=== PATIENT | male | born 1995 | race Caucasian/White ===

== ENCOUNTER 2016-05-04 20:45 | Emergency (ER) | payer OTHER ==
[~2016-05-04] VITALS: Ht 165.1 cm; Wt 49.0 kg
[~2016-05-04 20:45] MED LIST: PROZ40CA PO
[2016-05-04 20:49] VITALS: BP 135/88; PULSE 97; RESP 24; TEMP 98; O2SAT 100
[2016-05-04] MEDS ORDERED: SODIUM CHLOR 0.9% 1000 ML INJ 1,000 ML IV SCH (21:13)
[2016-05-04 21:15] LABS: MEAN CORPUSCULAR HGB CONC 36.6 % (32.0-36.0)
[2016-05-04] MEDS ORDERED: ONDANSETRON HCL 4 MG/2 ML VIAL IVP ONE (21:15)
[2016-05-04] MEDS ORDERED: SODIUM CHLORIDE 0.9% FLUSH 5 ML FLUSH IVF PRN ×2 (21:15→21:30)
[2016-05-04] MEDS ORDERED: MORPHINE SULFATE 4 MG/ML INJ IV PUSH ONE (21:15)
[2016-05-04 21:16] VITALS: RESP 16
--- NOTE | 2016-05-04 21:16 | PD ---
HPI Chief Complaint: Abdominal Pain Time Seen by Provider: 21:10 Travel History International Travel<30 days: No Contact w/Intl Traveler<30days: No Traveled to known affect area: No History of Present Illness HPI 21-year-old male here for evaluation of abdominal pain, nausea, and vomiting. Pain started about 2 hours prior to arrival after eating pizza, is over his mid and lower abdomen, described as cramping, 7 out of 10, constant, worse with palpation and movement. He had one episode of nonbloody/nonbilious emesis upon arrival to the emergency Department. No diarrhea. No history of abdominal surgeries. No fevers or chills. No urinary symptoms. He denies drugs or alcohol use. PFSH Past Medical History Diminished Hearing: No Psychiatric: Yes (depression) Past Surgical History Other Surgery: Yes (wisdom teeth) Social History Alcohol Use: No Tobacco Use: No Substance Use: No Allergies-Medications (Allergen,Severity, Reaction): Coded Allergies: Penicillin (Verified Allergy, Severe, 05/04/16) Reported Meds & Prescriptions Reported Meds & Active Scripts Active Review of Systems Except as stated in HPI: all other systems reviewed are Neg Physical Exam Narrative GENERAL: Well-developed, well-nourished, awake, alert, no acute distress. SKIN: Warm and dry. No rash. HEAD: Atraumatic. Normocephalic. EYES: Pupils equal and round. No scleral icterus. No injection or drainage. ENT: Mucous membranes pink and moist. NECK: Trachea midline. No JVD. CARDIOVASCULAR: Regular rate and rhythm. No murmur appreciated. RESPIRATORY: No accessory muscle use. Clear to auscultation. Breath sounds equal bilaterally. GASTROINTESTINAL: Abdomen soft, nondistended. Moderate Periumbilical tenderness without rebound or guarding. Rest of abdomen is mildly tender. Normal bowel sounds. No hernias. MUSCULOSKELETAL: No obvious deformities. No clubbing. No cyanosis. No edema. NEUROLOGICAL: Awake and alert. No obvious cranial nerve deficits. Motor grossly within normal limits. Normal speech. PSYCHIATRIC: Appropriate mood and affect; insight and judgment normal. Data Data Last Documented VS Vital Signs Date Time Temp Pulse Resp B/P Pulse Ox O2 Delivery O2 Flow Rate FiO2 05/04/16 21:41 16 05/04/16 20:49 98.0 97 135/88 100 Orders Complete Blood Count With Diff (05/04/16 21:13) Comprehensive Metabolic Panel (05/04/16 21:13) Lipase (05/04/16 21:13) Prothrombin Time / Inr (Pt) (05/04/16 21:13) Act Partial Throm Time (Ptt) (05/04/16 21:13) Urinalysis - C+S If Indicated (05/04/16 21:13) Iv Access Insert/Monitor (05/04/16 21:13) Ecg Monitoring (05/04/16 21:13) Oximetry (05/04/16 21:13) Morphine Inj (Morphine Inj) (05/04/16 21:15) Ondansetron Inj (Zofran Inj) (05/04/16 21:15) Sodium Chlor 0.9% 1000 Ml Inj (Ns 1000 M (05/04/16 21:13) Sodium Chloride 0.9% Flush (Ns Flush) (05/04/16 21:15) Ct Abd/Pel W Iv Contrast(Rout) (05/04/16 21:16) Sodium Chloride 0.9% Flush (Ns Flush) (05/04/16 21:30) Influenzae A/B Antigen (05/04/16 21:17) Diatrizoate Liq ( Gastrojaswant Liq) (05/04/16 21:20) Oral Contrast - Adult (05/04/16 21:23) Metoclopramide Inj (Reglan Inj) (05/04/16 21:45) Iohexol 350 Inj (Omnipaque 350 Inj) (05/04/16 22:27) Labs Laboratory Tests Test 05/04/16 21:35 White Blood Count 5.3 TH/MM3 Red Blood Count 5.16 MIL/MM3 Hemoglobin 16.1 GM/DL Hematocrit 44.0 % Mean Corpuscular Volume 85.3 FL Mean Corpuscular Hemoglobin 31.2 PG Mean Corpuscular Hemoglobin 36.6 % Concent Red Cell Distribution Width 14.0 % Platelet Count 246 TH/MM3 Mean Platelet Volume 6.9 FL Neutrophils (%) (Auto) 73.2 % Lymphocytes (%) (Auto) 17.7 % Monocytes (%) (Auto) 7.7 % Eosinophils (%) (Auto) 1.0 % Basophils (%) (Auto) 0.4 % Neutrophils # (Auto) 3.9 TH/MM3 Lymphocytes # (Auto) 0.9 TH/MM3 Monocytes # (Auto) 0.4 TH/MM3 Eosinophils # (Auto) 0.1 TH/MM3 Basophils # (Auto) 0.0 TH/MM3 CBC Comment AUTO DIFF Differential Comment AUTO DIFF CONFIRMED Platelet Estimate NORMAL Platelet Morphology Comment NORMAL Red Cell Morphology Comment NORMAL Prothrombin Time 11.4 SEC Prothromb Time International 1.0 RATIO Ratio Activated Partial 25.2 SEC Thromboplast Time Urine Color YELLOW Urine Turbidity HAZY Urine pH 7.0 Urine Specific [place] 1.022 Urine Protein TRACE mg/dL Urine Glucose (UA) NEG mg/dL Urine Ketones 10 mg/dL Urine Occult Blood LARGE Urine Nitrite NEG Urine Bilirubin NEG Urine Urobilinogen LESS THAN 2.0 MG/DL Urine Leukocyte Esterase NEG Urine RBC /hpf Urine WBC 3 /hpf Urine Amorphous Sediment RARE Urine Mucus FEW /lpf Microscopic Urinalysis Comment CULT NOT INDICATED Sodium Level 141 MEQ/L Potassium Level 3.3 MEQ/L Chloride Level 104 MEQ/L Carbon Dioxide Level 27.6 MEQ/L Anion Gap 9 MEQ/L Blood Urea Nitrogen 13 MG/DL Creatinine 0.97 MG/DL Estimat Glomerular Filtration 97 ML/MIN Rate Random Glucose 129 MG/DL Calcium Level 9.3 MG/DL Total Bilirubin 3.1 MG/DL Aspartate Amino Transf 15 U/L (AST/SGOT) Alanine Aminotransferase 24 U/L (ALT/SGPT) Alkaline Phosphatase 49 U/L Total Protein 7.7 GM/DL Albumin 4.6 GM/DL Lipase 292 U/L [facility] Medical Decision Making Medical Screen Exam Complete: Yes Emergency Medical Condition: Yes Differential Diagnosis Appendicitis, gastritis, pancreatitis, hepatobiliary disease, colitis, Narrative Course Vital signs reviewed. CBC is unremarkable. CMP is remarkable for potassium 3.3, otherwise unremarkable. Lipase is 292. UA shows hematuria, not suggestive of UTI. CT abdomen pelvis: CONCLUSION: 1. 2 mm stone of the distal right ureter causing mild obstructive uropathy. 2. Periportal edema, nonspecific but most likely related to intravenous fluids. 3. Benign appearing cyst of the right kidney. Patient was made aware of all findings. He was provided a copy of the CT report. He is more comfortable. He will be started on Flomax. He is stable for discharge home with outpatient follow-up with urologist this week. He was informed on when to return to the emergency department. He verbalizes understanding and agreement with plan. Diagnosis Primary Impression: Ureterolithiasis Additional Impression: Renal cyst, right Referrals: Narciso Miranda DO 3 days Additional Instructions: Follow-up with urologist Dr. Miranda or a urologist of your choice this week. Return to the emergency department for worsening symptoms or any other concerns. Scripts Oxycodone-Acetaminophen (Percocet)5-325 mg Tab1 Tab PO Q6H PRN (PAIN) #10 TAB Ref 0 Prov:Godwin Springer MD 05/04/16 Ondansetron Odt (Zofran Odt)4 Mg Tab4 Mg SL Q8HR PRN (Nausea/Vomiting) #15 TAB Ref 0 Prov:Godwin Springer MD 05/04/16 Tamsulosin (Flomax)0.4 Mg Cap0.4 Mg PO HS 14 Days Ref 0 Prov:Godwin Springer MD 05/04/16 Disposition: 01 DISCHARGE HOME Condition: Stable Godwin Springer MD May 04, 2016 21:16
[2016-05-04] MEDS ORDERED: DIATRIZOATE MEGLUM/DIATRIZOATE SOD 9 ML CUP ONE (21:20)
[2016-05-04 21:41] VITALS: RESP 16
[2016-05-04] MEDS ORDERED: METOCLOPRAMIDE HCL 10 MG/2 ML VIAL IV PUSH ONE (21:45)
[2016-05-04 22:09] LABS: BLOOD, URINE LARGE (NEG); COMMENT (UR) CULT NOT INDICATED; CULTURE IF INDICATED CULT NOT INDICATED; GLUCOSE,URINE NEG (NEG); KETONE, URINE 10 mg/dL (NEG); MUCUS URINE FEW /lpf (OCC); NITRITE,URINE NEG (NEG); URINE COLOR YELLOW (YELLW/STRAW)
[2016-05-04 22:14] LABS: AUTOMATED NEUTROPHIL # 3.9 TH/MM3 (1.8-7.7); BASOPHIL % 0.4 % (0.0-2.0); EOSINOPHIL # 0.1 TH/MM3 (0-0.4); LYMPH % 17.7 % (9.0-44.0); LYMPHOCYTE # 0.9 TH/MM3 (1.0-4.8); MEAN CELL VOLUME 85.3 FL (80.0-100.0); MEAN CORPUSCULAR HEMOGLOBIN 31.2 PG (27.0-34.0); MONO % 7.7 % (0.0-8.0); NEUT % 73.2 % (16.0-70.0); PLATELET COUNT 246 TH/MM3 (150-450); RED BLOOD COUNT 5.16 MIL/MM3 (4.50-5.90); WHITE BLOOD COUNT 5.3 TH/MM3 (4.0-11.0)
[2016-05-04 22:21] LABS: HEMO FLAGS AUTO DIFF
[2016-05-04] MEDS ORDERED: IOHEXOL 350 MG/ML 10 ML VIAL (for RAD DIAG) IV ONE (22:27)
[2016-05-04 22:38] LABS: ALT (GPT) 24 U/L (12-78); ANION GAP 9 MEQ/L (5-15); AST (GOT) 15 U/L (15-37); BICARBONATE 27.6 MEQ/L (21.0-32.0); BLOOD UREA NITROGEN 13 MG/DL (7-18); CHLORIDE 104 MEQ/L (98-107); GLOMERULAR FILTRATION RATE 97 ML/MIN (>89); POTASSIUM 3.3 MEQ/L (3.5-5.1); SODIUM (NA) 141 MEQ/L (136-145)
[2016-05-04 22:39] LABS: ALKALINE PHOSPHATASE 49 U/L (45-117); TOTAL BILIRUBIN ADULT 3.1 MG/DL (0.2-1.0)
[2016-05-04 22:41] LABS: APTT (PATIENT) 25.2 SEC (24.3-30.1); PROTHROMBIN TIME - PATIENT 11.4 SEC (9.8-11.6)
[2016-05-04 22:51] LABS: PLATELET ESTIMATE SMEAR NORMAL (NORMAL); PLATELET MORPHOLOGY NORMAL (NORMAL); SCAN/DIFF AUTO DIFF CONFIRMED
--- NOTE | 2016-05-04 22:51 | RADRPT ---
EXAM DATE/TIME: 05/04/2016 22:28 [place] COMPARISON: No previous studies available for comparison. INDICATIONS : Abdominal pain x 4 hours IV CONTRAST: 96 cc Omnipaque 350 (iohexol) IV ORAL CONTRAST: Prescribed oral contrast ingested. RADIATION DOSE: 9.96 CTDIvol (mGy) MEDICAL HISTORY : None SURGICAL HISTORY : None. ENCOUNTER: Initial ACUITY: 1 day PAIN SCALE: 6/10 LOCATION: Lower abdomen TECHNIQUE: Volumetric scanning of the abdomen and pelvis was performed. Using automated exposure control and ad justment of the mA and/or kV according to patient size, radiation dose was kept as low as reasonably achievable to obtain optimal diagnostic quality images. FINDINGS: LOWER LUNGS: The visualized lower lungs are clear. LIVER: There is nonspecific periportal edema. No evidence of biliary dilatation. CT appearance of the gallbl adder within normal limits. SPLEEN: Normal size without lesion. PANCREAS: Within normal limits. KIDNEYS: There is a 2 mm stone of the distal right ureter about 2 cm above the ureterovesical junction. The st one causes mild hydronephrosis/hydroureter. There is a 2.2 cm cyst of the right upper pole. ADRENAL GLANDS: Within normal limits. VASCULAR: There is no aortic aneurysm. BOWEL/MESENTERY: The stomach, small bowel, and colon demonstrate no acute abnormality. There is no free intraperitone al air or fluid. Appendix within normal limits. ABDOMINAL WALL: Within normal limits. RETROPERITONEUM: There is no lymphadenopathy. BLADDER: No wall thickening or mass. REPRODUCTIVE: Within normal limits. INGUINAL: There is no lymphadenopathy or hernia. MUSCULOSKELETAL: Within normal limits for patient age. CONCLUSION: 1. 2 mm stone of the distal right ureter causing mild obstructive uropathy. 2. Periportal edema, nonspecific but most likely related to intravenous fluids. 3. Benign appearing cyst of the right kidney. Robert Pugh MD on May 04, 2016 at 22:47 Board Certified Radiologist. This report was verified electronically.
[2016-05-04] MEDS ORDERED: PERC5TAB12 PO (23:16)
[2016-05-04] MEDS ORDERED: ZOFR4TAB3 SL (23:16)
[2016-05-04] MEDS ORDERED: TAMS5CAP PO (23:16)
[2016-05-04] MEDS ORDERED: KETOROLAC TROMETHAMINE 30 MG/ML (IVP) VIAL IV PUSH ONE (23:30)
[2016-05-04] MEDS ORDERED: TAMSULOSIN HCL 0.4 MG CAP PO ONE (23:30)
== END 2016-05-04 23:34 | disposition home or self-care (01) ==
LOC: NEPA 20:45
DX: N20.1 Calculus of ureter (principal); N28.1 Cyst of kidney, acquired; R10.9 Unspecified abdominal pain; R11.2 Nausea with vomiting, unspecified; Z86.59 Personal history of other mental and behavioral disorders
CPT/HCPCS: 74177; 80053; 81001; 83690; 85025; 85610; 85730; 87804; 96374; 96375; 99284; J1885; J2270; J2405; J2765; J7030; Q9963; Q9967